=== PATIENT | male | born 1985 | race Caucasian/White ===

== ENCOUNTER 2022-03-02 11:03 | Inpatient (IN) | payer BC ==
[~2022-03-02] VITALS: Ht 177.8 cm; Wt 90.7 kg
[2022-03-02 12:04] LABS: HEMOGLOBIN 18.5 gm/dl (14.0-17.5); RED BLOOD COUNT 6.11 M/UL (4.20-5.50); WHITE BLOOD COUNT 19.6 K/UL (4.5-11.0)
[2022-03-02 12:34] LABS: BUN/CREATININE RATIO 24 (0-10)
[2022-03-03 02:39] LABS: RED BLOOD COUNT 6.27 M/UL (4.20-5.50); WHITE BLOOD COUNT 25.6 K/UL (4.5-11.0)
[2022-03-03 03:34] LABS: BUN/CREATININE RATIO 25 (0-10)
[2022-03-03] MEDS ORDERED: PHENERGAN IM25 MG/ML IV (10:49)
[2022-03-03] MEDS ORDERED: DILAUDID 0.5 MG/0.5 IVP (10:49)
[2022-03-03] MEDS ORDERED: METRO IV 5500 MG/100 IV (10:49)
[2022-03-03] MEDS ORDERED: PROTONIX IV40 MG IVP (10:49)
[2022-03-03] MEDS ORDERED: LEVAQUIN I750 MG/150 IV (10:59)
[2022-03-03] MEDS ORDERED: NORMAL SALINE IV (11:01)
--- NOTE | 2022-03-03 18:46 | NUR ---
CALLED REPORT TO [facility] AT 1330 TO ANTIONE. REPORT GIVEN. AWAITING TRANSPORT VIA AMBULANCE FOR CONTINUED CARE WITH GI. AMBULANCE ARRIVED AT 1848 TO TRANSPORT THE PT TO [facility].
== END 2022-03-03 19:00 | disposition short-term general hospital (02) | DRG 444 ==
LOC: ER1 11:03 → M/S 16:44 → ER1 17:15 → M/S 03-03 19:00
PROVIDERS: Nurse Practitioner; ADMIT Internal Medicine Infectious Disease
DX: K80.50 Calculus of bile duct without cholangitis or cholecystitis without obstruction (principal); K85.90 Acute pancreatitis without necrosis or infection, unspecified; Z20.822 Contact with and (suspected) exposure to COVID-19; N28.1 Cyst of kidney, acquired; N20.0 Calculus of kidney; E86.0 Dehydration; K83.8 Other specified diseases of biliary tract; Z90.49 Acquired absence of other specified parts of digestive tract; Z83.3 Family history of diabetes mellitus; Z82.5 Family history of asthma and other chronic lower respiratory diseases; Z88.0 Allergy status to penicillin
CPT/HCPCS: 36415; 71045; 76705; 80053; 81001; 82550; 82553; 83605; 83690; 84484; 85025; 87040; 93005; 96374; 96375; 96376; 99285; C9113; J1170; J1650; J1956; J2270; J2405; J2550; Q9967